=== PATIENT | male | born 1950 | race Caucasian/White ===

== ENCOUNTER 2016-08-20 05:17 | Day surgery (SDC) | payer MEDICARE, BC ==
[~2016-08-20 05:17] MED LIST: ACTOS30 M1 PO; ADULT LOW DOSE81 MG; AMLODIPINE BESY10 M1 PO; AMOX TR-K CLV 21 TAB; ASPIR 8181 M1 PO; ASPIRIN325 M3 PO; ASPIRIN325 MG; BABY ASPIRIN81 MG; CLOPIDOGREL75 M1 PO; COUMADIN2.5 MG PO; CRESTOR20 MG; CRESTOR5 MG; CYMBALTA60 M1 PO; ECOTRIN325 MG; EFFIENT10 MG PO; ENDOCET 5/325 T1 TAB; ESCITALOPRAM OX10 M1 PO; ESCITALOPRAM OX20 M1 PO; FLEXERIL10 MG; FLEXERIL10 MG PO; FUROSEMIDE40 MG; GLUCOPHAGE XR500 MG; GLUCOPHAGE500 MG; HYDROCHLOROTH12.5 MG; HYDROCHLOROTHIA25 M1 PO; HYDROCHLOROTHIA50 MG; ISOSORBIDE MONO30 M4 PO; LASIX40 MG; LIPITOR80 M1 PO; LISINOPRIL20 M1 PO; LISINOPRIL40 MG; LISINOPRIL40 MG PO; LIVALO4 M1 PO; LOPRESSOR25 MG/TA1 GT; LOPRESSOR50 M1 PO; LORATADINE10 M2 PO; METFORMIN HCL1000 M2 PO; METOPROLOL TART25 MG; METOPROLOL TART25 MG PO; MIRTAZAPINE30 M2 PO; MUCINEX DM1 TAB.SR .; NEURONTIN300 M1 PO; NITROGLYCERIN0.4 M2 SL; NORCO 7.5/325 T1 TAB PO; NORVASC10 MG; NOVOLOG100 U/M; NYSTATIN15 G1 TOP; OMEPRAZOLE40 M2 PO; ONGLYZA2.5 MG PO; OXYCODONE PO; OXYGEN; PERCOCET 5-3251 EACH PO; PERCOCET 5/3251 TAB PO; PLAVIX75 M1 PO; PLAVIX75 MG PO; POTASSIUM CHLO20 MEQ; PROTONIX40 M2 PO; RANEXA500 M1 PO; RANITIDINE HCL150 M3 PO; RESTORE TEARS30 ML OP; SIMVASTATIN40 MG PO; TARKA 1/2401 BOTTLE; TESTOSTERO200 MG/1 M IM; TOPIRAGEN25 MG PO; TOPROL XL100 MG; TRAMADOL HCL50 M2 PO; TRAMADOL HCL50 MG PO; TRIAMCINOLONE A15 G2 TOP; TYLENOL ARTHRI650 MG; VALIUM5 M1 PO; VITAMIN D2000 UNIT PO; XANAX0.25 M1 PO
== END 2016-08-21 12:27 ==
LOC: SRG 05:17 → SHSC 05:18 → ORE 07:14 → PACU 10:09 → 5EA 11:14
PROC: 0LQ14ZZ Repair Right Shoulder Tendon, Percutaneous Endoscopic Approach (ICD-10-PCS; principal; 2016-08-20)
DX: M75.101 Unspecified rotator cuff tear or rupture of right shoulder, not specified as traumatic (principal); M75.41 Impingement syndrome of right shoulder; S46.211A Strain of muscle, fascia and tendon of other parts of biceps, right arm, initial encounter; F32.9 Major depressive disorder, single episode, unspecified; K21.9 Gastro-esophageal reflux disease without esophagitis; E78.5 Hyperlipidemia, unspecified; M15.9 Polyosteoarthritis, unspecified; E66.01 Morbid (severe) obesity due to excess calories; I12.9 Hypertensive chronic kidney disease with stage 1 through stage 4 chronic kidney disease, or unspecified chronic kidney disease; E11.22 Type 2 diabetes mellitus with diabetic chronic kidney disease; N18.3 Chronic kidney disease, stage 3 (moderate); I25.10 Atherosclerotic heart disease of native coronary artery without angina pectoris; Z79.02 Long term (current) use of antithrombotics/antiplatelets; Z79.82 Long term (current) use of aspirin; Z79.84 Long term (current) use of oral hypoglycemic drugs; Z79.899 Other long term (current) drug therapy; Z88.1 Allergy status to other antibiotic agents; Z88.2 Allergy status to sulfonamides; Z88.5 Allergy status to narcotic agent; Z88.8 Allergy status to other drugs, medicaments and biological substances; Z87.891 Personal history of nicotine dependence; Z90.49 Acquired absence of other specified parts of digestive tract; Z95.5 Presence of coronary angioplasty implant and graft; Z96.641 Presence of right artificial hip joint; Z96.653 Presence of artificial knee joint, bilateral; Z98.890 Other specified postprocedural states
CPT/HCPCS: C1713; J0171; J0690; J1170; J2270

== ENCOUNTER 2016-08-31 21:55 | Observation (INO) | payer MEDICARE, BC ==
[2016-08-31 22:28] LABS: BASO % 0.2 % (0-2); EOS % 4.7 % (0-7); EOSINOPHIL ABSOLUTE COUNT 0.3 tho/cmm (0.0-0.7); HCT-HEMATOCRIT 42.9 % (36.0-53.5); HGB-HEMOGLOBIN 14.3 gm/dl (13.5-17.0); IMMATURE GRANULOCYTES ABSOLUTE 0.04 tho/cmm (0-0.03); IMMATURE GRANULOCYTES PERCENT 0.6 % (0-0.3); LYMPH % 29.8 % (20-45); LYMPH ABSOLUTE COUNT 1.9 tho/cmm (0.8-4.5); MCH (MEAN CORPUSCULAR HGB) 30.5 pg (28.0-32.0); MCHC MEAN CORPUSCULAR HGB CONC 33.3 % (32.0-36.0); MCV (MEAN CELL VOLUME) 91.5 fl (82.0-96.0); MEAN PLATELET VOLUME 11.8 cmc (9.4-12.4); MONO % 11.6 % (0-12); MONOCYTE ABSOLUTE COUNT 0.7 tho/cmm (0.0-1.2); NEUTROPHIL ABSOLUTE COUNT 3.4 tho/cmm (1.6-8.0); NEUTROPHIL-AUTOMATED 3.4 tho/cmm (1.6-8.0); NEUTROPHILS % 53.1 % (40-80); PLATELET COUNT 248 tho/cmm (150-450); RED BLOOD COUNT 4.69 mil/cmm (4.40-5.70); RED CELL DISTRIBUTION WIDTH 14.5 % (12.4-16.4); WHITE BLOOD COUNT 6.4 tho/cmm (4.0-10.0)
[2016-08-31 22:35] LABS: INR 0.9 INR (0.9-1.1); PROTHROMBIN TIME 10.4 SECONDS (9.0-13.6)
[2016-08-31 23:13] LABS: BLOOD UREA NITROGEN 23 mg/dl (6-24); CALCIUM 8.3 mg/dl (8.5-10.5); CARBON DIOXIDE-VENOUS 21 mmol/L (22-32); CHLORIDE 106 mmol/l (96-110); CREATININE 1.65 mg/dl (0.60-1.30); SODIUM 138 mmol/L (135-145); eGFR VALUE FOR BLACK 49 mL/Min
[2016-08-31 23:24] LABS: ANION GAP 16 mmol/L (0-20); GLUCOSE 301 mg/dL (70-110); MAGNESIUM 1.1 mg/dl (1.3-2.6); POTASSIUM 4.5 mmol/L (3.7-5.1)
[2016-09-01 05:41] LABS: CHOLESTEROL 222 mg/dl (120-200); HDL CHOLESTEROL 38 mg/dl (40-60); VLDL 131 mg/dl (0-30)
[2016-09-01 05:44] LABS: TRIGLYCERIDES 656 mg/dl (<149)
== END 2016-09-01 10:15 | disposition other institution (70) ==
LOC: EDMED 21:55 → EMR2 09-01 00:33 → CAR1 09-01 01:40
PROVIDERS: Emergency Medicine; Nurse Practitioner Family; ADMIT Internal Medicine Cardiovascular Disease
DX: I25.110 Atherosclerotic heart disease of native coronary artery with unstable angina pectoris (principal); E11.22 Type 2 diabetes mellitus with diabetic chronic kidney disease; I12.9 Hypertensive chronic kidney disease with stage 1 through stage 4 chronic kidney disease, or unspecified chronic kidney disease; N18.9 Chronic kidney disease, unspecified; E78.5 Hyperlipidemia, unspecified; M79.7 Fibromyalgia; E66.9 Obesity, unspecified; Z68.41 Body mass index [BMI] 40.0-44.9, adult; Z88.1 Allergy status to other antibiotic agents; Z88.2 Allergy status to sulfonamides; Z88.8 Allergy status to other drugs, medicaments and biological substances; Z79.899 Other long term (current) drug therapy; Z90.49 Acquired absence of other specified parts of digestive tract; Z87.891 Personal history of nicotine dependence; Z82.49 Family history of ischemic heart disease and other diseases of the circulatory system; Z98.890 Other specified postprocedural states
CPT/HCPCS: G0378; J1650; J2270; J3475